=== PATIENT | female | born 1985 | race Caucasian/White ===

== ENCOUNTER 2021-04-03 17:53 | Emergency (ER) | payer BC, SELFPAY ==
--- NOTE | 2021-04-03 18:11 | PC.NURSE ---
Accompanied Dr. Gar with exam.
--- NOTE | 2021-04-03 18:13 | ED.DENTAL ---
HPI - Dental/Oral General Chief complaint: Dental/Oral Stated complaint: infection in mouth Source: patient and RN notes reviewed Mode of arrival: ambulatory Limitations: no limitations History of Present Illness Complaint: tooth pain and tooth injury (broken filling) Location: Tooth # (19) Onset (ago): day(s) (5) Duration: constant Severity: severe Relieving factors: nothing Exacerbating factors: chewing and cold Treatment prior to arrival: topical analgesic Related Data Home Medications Medication Instructions Recorded Confirmed famotidine 20 mg PO DAILY 04/03/21 04/03/21 meloxicam 15 mg PO DAILY 04/03/21 04/03/21 Allergies Allergy/AdvReac Type Severity Reaction Status Date / Time No Known Allergies Allergy Verified 04/03/21 18:12 Review of Systems Review of Systems: All systems reviewed & are unremarkable except as noted in HPI and below Constitutional: Constitutional: Denies chills and Denies fever(s) PMFSH Past Medical History Medical History (Updated 04/03/21 @ 18:25 by Israel Gar MD) No active medical problems Surgical History Surgical History (Updated 04/03/21 @ 18:20 by Israel Gar MD) No pertinent past surgical history Social History Social History (Updated 04/03/21 @ 18:20 by Israel Gar MD) Smoking packs per day: 1 Smoking cigarettes per day: 20.0 Smoking status: Current every day smoker Tobacco type: cigarettes Alcohol intake: current Alcohol use details: occasional Substance use: never Exam Const: General: healthy appearing and no acute distress Nutritional Appearance: well nourished Orientation/consciousness: patient oriented x3 Other: female nurse in room during examination. HENMT: Head: normal to inspection Ears: external ears normal Face and sinus: normal facial exam Mouth: Yes lip normal and Yes moist mucous membranes Teeth image: 1. Surrounding swelling and erythema of the gums, fractured tooth with filling in place Eyes: Conjunctivae: conjunctivae normal Pupils: Equal, round and reactive pupils present EOM: EOMs intact bilaterally Neck: Neck: normal visual inspection and no lymphadenopathy Resp: Effort & Inspection: normal respiratory effort Auscultation: clear to auscultation bilaterally Cardio: Rate: regular rate Rhythm: regular rhythm Heart sounds: no murmurs GI: GI Palp: Yes Soft to palpation and No Tenderness to palpation present (GI) Auscultation: normal bowel sounds Back/Spine/Pelvis: Cervical Spine: cervical ROM normal Thoracic/Lumbar Spine: thoraco-lumbar ROM normal Skin: General skin exam: normal color Rashes: no rashes Neuro: General: patient oriented x3, moves all extremities, no meningeal signs and no focal motor deficits Speech: normal speech Gait exam (Neuro): Normal gait present Extrem: General: normal to inspection and no clubbing, cyanosis or edema Psych: Appearance: grossly normal and well kempt Mental Status: mental status grossly normal Affect: normal affect Attitude: cooperative Thought content: Yes Normal thought content present Discharge Plan Discharge Clinical Impression: Toothache Patient Disposition: Home, Self-Care Condition: Stable Instructions: Toothache (ED) Additional Instructions: get some dental wax. See dentist as soon as possible. Prescriptions: New amoxicillin 500 mg capsule 500 mg PO Q8H 10 Days Qty: 30 RF: 0 tramadol 50 mg tablet 50 mg PO Q6H PRN (Reason: pain) Qty: 12 RF: 0 No Action meloxicam 15 mg tablet 15 mg PO DAILY RF: 0 famotidine 20 mg tablet 20 mg PO DAILY RF: 0 Follow-up/Referrals: UNKNOWN,DOCTOR [Primary Care Provider] -
[2021-04-03 18:15] VITALS: BP 144/89; PULSE 97; RESP 18; TEMP 36.6; O2SAT 98
[2021-04-03] MEDS: traMADol HCL (*CRX) 50 MG TABLET PO (18:23)
[2021-04-03] MEDS: AMOXICILLIN 500 MG CAPSULE PO (18:23)
== END 2021-04-03 18:34 | disposition home or self-care (01) ==
PROVIDERS: Emergency Provider Emergency Medicine
DX: K08.89 Other specified disorders of teeth and supporting structures (principal)
CPT/HCPCS: 99283; A9270

== ENCOUNTER 2022-09-01 11:23 | Emergency (ER) | payer BC, SELFPAY ==
[2022-09-01 11:27] VITALS: BP 139/85; PULSE 95; RESP 18; TEMP 36.3; O2SAT 100
--- NOTE | 2022-09-01 11:39 | ED.DENTAL ---
HPI - Dental/Oral General Chief complaint: Dental/Oral Stated complaint: toothache Time Seen by Provider: 09/01/22 11:39 Source: patient and RN notes reviewed Mode of arrival: ambulatory Limitations: no limitations History of Present Illness Complaint: tooth pain Location: Tooth # (19) Onset (ago): day(s) (1) Duration: constant Severity: moderate Relieving factors: nothing Exacerbating factors: chewing Treatment prior to arrival: none Related Data Home Medications Medication Instructions Recorded Confirmed famotidine 20 mg tablet 20 mg PO DAILY 04/03/21 04/03/21 meloxicam 15 mg tablet 15 mg PO DAILY 04/03/21 04/03/21 Allergies Allergy/AdvReac Type Severity Reaction Status Date / Time No Known Allergies Allergy Verified 09/15/21 13:48 Review of Systems Review of Systems: All systems reviewed & are unremarkable except as noted in HPI and below Constitutional: Constitutional: Reports chills and Denies fever(s) PMFSH Past Medical History Medical History No active medical problems Surgical History Surgical History No pertinent past surgical history Social History Social History Smoking packs per day: 1 Smoking cigarettes per day: 20.0 Smoking status: Current every day smoker Tobacco type: cigarettes Alcohol intake: current Alcohol use details: occasional Substance use: never Exam Const: General: healthy appearing, no acute distress and alert Nutritional Appearance: well nourished Orientation/consciousness: patient oriented x3 Limitations: no limitations Other: female nurse in room during examination HENMT: Head: normal to inspection Ears: external ears normal Face/Nose/Sinus: Normal external nose present Face and sinus: normal facial exam Mouth: Yes moist mucous membranes Teeth image: 1. mild erythema and surrounding edema. Enamel eroded at the base with possible nerve exposure. Eyes: Conjunctivae: conjunctivae normal Pupils: Equal, round and reactive pupils present EOM: EOMs intact bilaterally Neck: Neck: normal visual inspection Resp: Effort & Inspection: normal respiratory effort Auscultation: clear to auscultation bilaterally Cardio: Rate: regular rate Rhythm: regular rhythm GI: GI Palp: Yes Soft to palpation and No Tenderness to palpation present (GI) Auscultation: normal bowel sounds Back/Spine/Pelvis: Cervical Spine: cervical ROM normal Thoracic/Lumbar Spine: thoraco-lumbar ROM normal Skin: General skin exam: normal color Rashes: no rashes Neuro: General: patient oriented x3, moves all extremities, no focal motor deficits and CN's II-XI intact bilaterally Speech: normal speech Gait exam (Neuro): Normal gait present Extrem: General: normal to inspection and no clubbing, cyanosis or edema Psych: Mental Status: mental status grossly normal Affect: normal affect Attitude: cooperative Course Vital Signs Vital signs: Vital Signs Temperature 36.3 C L 09/01/22 11:27 Pulse Rate 95 09/01/22 11:27 Respiratory Rate 18 09/01/22 11:27 Blood Pressure 139/85 09/01/22 11:27 Pulse Oximetry 100 09/01/22 11:27 Oxygen Delivery Room Air 09/01/22 11:27 Temperature 36.3 C L 09/01/22 11:27 Pulse Rate 95 09/01/22 11:27 Respiratory Rate 18 09/01/22 11:27 Blood Pressure 139/85 09/01/22 11:27 Pulse Oximetry 100 09/01/22 11:27 Oxygen Delivery Room Air 09/01/22 11:27 MDM - Dental/Oral Differential Diagnosis Differential diagnosis: Likely dental caries, toothache, dental abscess and other ( Dental nerve exposure) Discharge Plan Discharge Clinical Impression: Pain, dental Patient Disposition: Home, Self-Care Condition: Stable Instructions: Toothache (ED) Additional Instructions: ibuprofen listed to be safe up until the 20th week of .
[2022-09-01 11:57] VITALS: BP 139/85; PULSE 95; RESP 18; TEMP 36.3; O2SAT 100
== END 2022-09-01 11:57 | disposition home or self-care (01) ==
PROVIDERS: Emergency Provider Emergency Medicine
DX: K08.89 Other specified disorders of teeth and supporting structures (principal); F17.210 Nicotine dependence, cigarettes, uncomplicated
CPT/HCPCS: 99283